=== PATIENT | female | born 1970 | race Caucasian/White ===

== ENCOUNTER 2017-01-08 12:17 | Inpatient (IN) | payer MEDICARE, MEDICAID ==
[~2017-01-08 12:17] MED LIST: ADULT ASPIRIN81 MG PO; ADULT LOW DOSE81 MG; ALBUTEROL2.5 MG/0.1 NEB; ALTACE10 MG; ASPIR-LOW81 MG PO; ASPIRIN BUFFER325 M1 PO; ASPIRIN EC325 M1 PO; ASPIRIN EC81 MG PO; ASPIRIN PO; ASPIRIN325 MG PO; AVELOX400 M1 PO; BAYER CHILDREN'81 MG PO; BENADRYL25 M3 PO; BENADRYL25 MG PO; BENADRYL50 MG PO; BISACODYL10 MG/SU PR; BUMETANIDE1 M1 PO; BUMETANIDE2 M1 PO; BUMEX1 MG; CARAFATE1 G/10 ML PO; CLINDAMYCIN HC300 M2 PO; COL-RITE100 M1 PO; COLACE100 M1 PO; COUMADIN2 MG PO; COUMADIN2.5 MG; COUMADIN3 MG; COUMADIN3 MG PO; COZAAR50 MG PO; CYCLOBENZAPRINE10 M1 PO; DEMEROL50 MG PO; DEXTROSE 50%-WA50 M3 IV; DOCUSATE CALCI240 M1 PO; EFFER-K 10 MEQ10 MEQ PO; EPOGEN10000 UNIT SC; EPOGEN20000 U/ML SC; EVZIO0.4 MG/0.4 IV; FLEXERIL10 MG; FLEXERIL10 MG PO; FLONASE16 G3 NS; FLONASE16 GM NS; GABAPENTIN300 M1 PO; GLUCAGON EME1 MG/KIT IM; HUMALOG100 U/ML; HUMALOG100 UNITS/ SC; HUMULIN N100 U/ML SQ; HYDROMORPHO1 MG/1 M2 IV; HYDROMORPHONE1 MG/M1 IV; INSULIN GLARGINE; IRON1 TA1 PO; IRON325 M1 PO; IRON325 M3 PO; K-DUR20 MEQ; KEFLEX500 MG PO; KLOR-CON 1010 ME1 PO; LANTUS100 U/ML; LANTUS100 U/ML SC; LANTUS100 UNITS/ SC; LASIX; LASIX20 MG; LASIX40 M1 PO; LEVAQUIN; LEVEMIR FL100 UNIT/2 SC; LEXAPRO10 MG; LEXAPRO20 M1 PO; LEXAPRO20 M2 PO; LEXAPRO20 MG PO; LIDOCAINE VISCO15 ML PO; LIPITOR; LIPITOR10 MG; LIPITOR40 M1 PO; LOPRE25 PO; LOVENOX30 MG/0.3 SC; METOLAZONE2.5 M1 PO; METOPROLOL TART25 M1 PO; MIRALAX17 G1 PO; MIRALAX17 G2 PO; MIRALAX255 GM; NORVASC10 M1 PO; NORVASC2.5 MG PO; NORVASC5 M2 PO; NORVASC5 MG PO; NOVOFINE; NOVOLOG FL100 UNIT/2 SC; NOVOLOG FL100 UNIT/2 SQ; NOVOLOG100 U/M; NOVOLOG100 U/M SQ; NOVOLOG100 U/ML; NYSTOP15 GM TP; OMEPRAZOLE MAGN20 M1 PO; OMEPRAZOLE20 M4 PO; OXECTA7.5 MG PO; OXYCODONE/APAP; OXYCONTIN40 M2 PO; OXYCONTIN40 MG PO; OYST-CAL-500500 MG PO; PACERONE200 MG PO; PANTOPRAZOLE SO40 M3 PO; PERCOCET 10/31 UDTAB PO; PERCOCET 5-3251 EACH PO; PERCOCET 7.5/1 UDTAB; PERCOCET 7.5/321 TA2 PO; PLAVIX75 MG PO; POTASSIUM CHLO10 MEQ; PREVACID30 MG; PRILOSEC40 MG PO; PROCRIT10000 U/ML IJ; PROCRIT10000 UNIT IJ; REQUIP1 M1 PO; REQUIP1 MG; REQUIP1 MG PO; REQUIP2 MG PO; ROPINIROLE HCL1 M1 PO; ROPINIROLE HCL1 MG PO; ROXICODONE5 M2 PO; SANTYL30 GM TP; SILVADENE20 GM TP; SIMVASTATIN40 M1 PO; SLOW-MAG71.5 MG PO; TAMIFLU75 MG/CAP PO; TOPROL XL100 MG; TOPROL XL100 MG PO; TOPROL XL200 MG; TYLENOL TA325 MG/TAB PO; TYLENOL325 M1 PO; VICODIN 5/500 T1 TAB PO; VISTARIL25 M1 PO; VITAMIN D 22000 UNIT PO; VITAMIN D-32000 UNI3 PO; VITAMIN D400 UNIT PO; VYTORIN; VYTORIN 10/40 T1 TAB PO; ZETIA10 MG; ZOFRAN4 MG/5 M1 IV; [UNRECOGNIZED DRUG - CODE] IJ; [UNRECOGNIZED DRUG - OTHER]; [UNRECOGNIZED DRUG - OTHER] PO; vytorin
[2017-01-08] MEDS ORDERED: AMLODIPINE BESYL5 MG PO (13:11)
[2017-01-08] MEDS ORDERED: ASPIRIN325 M3 PO (13:12)
[2017-01-08] MEDS ORDERED: VITAMIN D31000 UNI3 PO (13:12)
[2017-01-08] MEDS ORDERED: LEXAPRO10 M2 PO (13:13)
[2017-01-08] MEDS ORDERED: FLONASE ALLERG9.9 ML (13:14)
[2017-01-08] MEDS ORDERED: METOLAZONE2.5 M1 PO (13:15)
[2017-01-08] MEDS ORDERED: LEVOTHYROXINE125 MC1 PO (13:15)
[2017-01-08] MEDS ORDERED: SLOW-MAG71.5 MG PO (13:18)
[2017-01-08] MEDS ORDERED: REQUIP3 M1 PO (13:18)
[2017-01-08] MEDS ORDERED: PROAIR RESPICL90 MCG INH (13:20)
[2017-01-08 16:24] LABS: BASO % 0.1 % (0-2); EOS % 11.1 % (0-7); EOSINOPHIL ABSOLUTE COUNT 1.2 tho/cmm (0.0-0.7); HCT-HEMATOCRIT 30.7 % (34.0-49.0); HGB-HEMOGLOBIN 9.4 gm/dl (12.0-15.5); IMMATURE GRANULOCYTES ABSOLUTE 0.02 tho/cmm (0-0.03); IMMATURE GRANULOCYTES PERCENT 0.2 % (0-0.3); LYMPH % 11.8 % (20-45); LYMPH ABSOLUTE COUNT 1.3 tho/cmm (0.8-4.5); MCH (MEAN CORPUSCULAR HGB) 29.5 pg (28.0-32.0); MCHC MEAN CORPUSCULAR HGB CONC 30.6 % (32.0-36.0); MCV (MEAN CELL VOLUME) 96.2 fl (82.0-96.0); MONO % 3.5 % (0-12); MONOCYTE ABSOLUTE COUNT 0.4 tho/cmm (0.0-1.2); NEUTROPHIL ABSOLUTE COUNT 8.1 tho/cmm (1.6-8.0); NEUTROPHIL-AUTOMATED 8.1 tho/cmm (1.6-8.0); NEUTROPHILS % 73.3 % (40-80); PLATELET COUNT 228 tho/cmm (150-450); RED BLOOD COUNT 3.19 mil/cmm (4.00-5.20); RED CELL DISTRIBUTION WIDTH 16.7 % (12.4-16.4)
[2017-01-08 16:26] LABS: ABG CO2 ARTERIAL 33 mmol/L (21-27); ARTERIAL BLD GAS O2 SATURATION 90 % (95-98); ARTERIAL BLOOD GAS PCO2 50 mmHg (32-45); ARTERIAL PO2 59 mmHg (70-100); BICARBONATE 31 mmol/L (21-28); BLOOD GAS BASE EXCESS 6 mM/L (-/+3); PH 7.41 Units (7.35-7.45)
[2017-01-08 16:34] LABS: ALB/GLOB RATIO 0.4 (0.8-2.0); ALBUMIN 2.1 g/dl (3.5-5.0); ALKALINE PHOSPHATASE 108 U/L (33-138); ALT/SGPT 10 U/L (12-78); ANION GAP 11 mmol/L (0-20); AST/SGOT 10 U/L (10-40); BILIRUBIN,TOTAL 0.3 mg/dl (0-1.5); BLOOD UREA NITROGEN 82 mg/dl (6-24); CARBON DIOXIDE-VENOUS 32 mmol/L (22-32); CHLORIDE 99 mmol/l (96-110); GLUCOSE 212 mg/dL (70-110); POTASSIUM 4.2 mmol/L (3.7-5.1); SODIUM 138 mmol/L (135-145); eGFR VALUE FOR BLACK 21 mL/Min
[2017-01-08 22:07] LABS: PROTHROMBIN TIME 11.8 SECONDS (9.0-13.6)
[2017-01-08 22:19] LABS: PROCALCITONIN 0.07 ng/ml (0.05-0.09)
[2017-01-09 07:41] LABS: ANION GAP 11 mmol/L (0-20); BLOOD UREA NITROGEN 77 mg/dl (6-24); CALCIUM 8.1 mg/dl (8.5-10.5); CARBON DIOXIDE-VENOUS 32 mmol/L (22-32); CHLORIDE 100 mmol/l (96-110); CREATININE 2.87 mg/dl (0.50-1.10); GLUCOSE 290 mg/dL (70-110); PHOSPHOROUS 4.6 mg/dl (2.5-4.9); POTASSIUM 4.2 mmol/L (3.7-5.1); SODIUM 139 mmol/L (135-145); eGFR VALUE FOR BLACK 22 mL/Min
[2017-01-10 06:20] LABS: EOS % 0.1 % (0-7); HCT-HEMATOCRIT 35.8 % (34.0-49.0); IMMATURE GRANULOCYTES ABSOLUTE 0.02 tho/cmm (0-0.03); IMMATURE GRANULOCYTES PERCENT 0.3 % (0-0.3); LYMPH % 6.1 % (20-45); LYMPH ABSOLUTE COUNT 0.5 tho/cmm (0.8-4.5); MCH (MEAN CORPUSCULAR HGB) 29.6 pg (28.0-32.0); MCHC MEAN CORPUSCULAR HGB CONC 30.7 % (32.0-36.0); MCV (MEAN CELL VOLUME) 96.5 fl (82.0-96.0); MEAN PLATELET VOLUME 10.6 cmc (9.4-12.4); MONO % 0.3 % (0-12); NEUTROPHIL ABSOLUTE COUNT 7.4 tho/cmm (1.6-8.0); NEUTROPHIL-AUTOMATED 7.4 tho/cmm (1.6-8.0); NEUTROPHILS % 93.2 % (40-80); PLATELET COUNT 247 tho/cmm (150-450); RED BLOOD COUNT 3.71 mil/cmm (4.00-5.20); RED CELL DISTRIBUTION WIDTH 16.4 % (12.4-16.4); WHITE BLOOD COUNT 7.9 tho/cmm (4.0-10.0)
[2017-01-10 06:22] LABS: ABG CO2 ARTERIAL 25 mmol/L (21-27); ARTERIAL BLD GAS O2 SATURATION 95 % (95-98); ARTERIAL BLOOD GAS PCO2 41 mmHg (32-45); ARTERIAL PO2 73 mmHg (70-100); BICARBONATE 29 mmol/L (21-28); BLOOD GAS BASE EXCESS 5 mM/L (-/+3); PH 7.47 Units (7.35-7.45)
[2017-01-10 07:08] LABS: ALBUMIN 2.3 g/dl (3.5-5.0); ANION GAP 17 mmol/L (0-20); BLOOD UREA NITROGEN 74 mg/dl (6-24); CALCIUM 8.7 mg/dl (8.5-10.5); CARBON DIOXIDE-VENOUS 30 mmol/L (22-32); CHLORIDE 96 mmol/l (96-110); CREATININE 2.69 mg/dl (0.50-1.10); FERRITIN 386 ng/ml (8-250); PHOSPHOROUS 3.3 mg/dl (2.5-4.9); POTASSIUM 4.8 mmol/L (3.7-5.1); SODIUM 138 mmol/L (135-145); eGFR VALUE FOR BLACK 24 mL/Min
[2017-01-10 07:15] LABS: GLUCOSE 436 mg/dL (70-110)
[2017-01-10 07:29] LABS: IRON 43 ug/dl (37-170); IRON BINDING CAPACITY 205 ug/dl (250-450)
--- NOTE | 2017-01-10 16:47 | NUR ---
VIRTUAL CARE NOTE: PT RESTING ON BED, STILL ON 5-6L OXYGEN. PT STATES FEELING BETTER, NO COUGHING MUCH BUT SOB WITH ACTIVITIES. STEROIDS IV STARTED BLOOD SUGAR HIGH, SSI INCREASED TO AGGREESIVE. PT IS ACS[place] OF [place] PLAN, WILL PLAN DC HOME WITH O2 TOMORROW. PT DENIES ANY EXTRA HELP AT DISCHARGE. PT HAD [facility] IN THE PAST BUT DOES NOT NEED THE SERCIVE AT THIS TIME.
[2017-01-11 06:02] LABS: EOS % 0.2 % (0-7); HGB-HEMOGLOBIN 10.9 gm/dl (12.0-15.5); IMMATURE GRANULOCYTES ABSOLUTE 0.03 tho/cmm (0-0.03); IMMATURE GRANULOCYTES PERCENT 0.3 % (0-0.3); LYMPH % 5.2 % (20-45); LYMPH ABSOLUTE COUNT 0.6 tho/cmm (0.8-4.5); MCH (MEAN CORPUSCULAR HGB) 29.9 pg (28.0-32.0); MCHC MEAN CORPUSCULAR HGB CONC 31.1 % (32.0-36.0); MCV (MEAN CELL VOLUME) 95.9 fl (82.0-96.0); MEAN PLATELET VOLUME 10.9 cmc (9.4-12.4); MONO % 3.9 % (0-12); MONOCYTE ABSOLUTE COUNT 0.5 tho/cmm (0.0-1.2); NEUTROPHIL ABSOLUTE COUNT 10.4 tho/cmm (1.6-8.0); NEUTROPHIL-AUTOMATED 10.4 tho/cmm (1.6-8.0); NEUTROPHILS % 90.4 % (40-80); RED BLOOD COUNT 3.65 mil/cmm (4.00-5.20); RED CELL DISTRIBUTION WIDTH 16.4 % (12.4-16.4); WHITE BLOOD COUNT 11.5 tho/cmm (4.0-10.0)
[2017-01-11 06:22] LABS: BLOOD UREA NITROGEN 78 mg/dl (6-24); CALCIUM 8.5 mg/dl (8.5-10.5); CARBON DIOXIDE-VENOUS 29 mmol/L (22-32); CHLORIDE 96 mmol/l (96-110); CREATININE 2.69 mg/dl (0.50-1.10); SODIUM 136 mmol/L (135-145); eGFR VALUE FOR BLACK 24 mL/Min
[2017-01-11 06:50] LABS: ANION GAP 17 mmol/L (0-20); GLUCOSE 502 mg/dL (70-110); POTASSIUM 5.5 mmol/L (3.7-5.1)
[2017-01-11 08:06] LABS: PLATELET COUNT 253 tho/cmm (150-450)
[2017-01-12 06:50] LABS: EOS % 0.1 % (0-7); HCT-HEMATOCRIT 34.6 % (34.0-49.0); HGB-HEMOGLOBIN 10.7 gm/dl (12.0-15.5); IMMATURE GRANULOCYTES ABSOLUTE 0.01 tho/cmm (0-0.03); IMMATURE GRANULOCYTES PERCENT 0.1 % (0-0.3); LYMPH % 10.5 % (20-45); LYMPH ABSOLUTE COUNT 0.8 tho/cmm (0.8-4.5); MCH (MEAN CORPUSCULAR HGB) 29.6 pg (28.0-32.0); MCHC MEAN CORPUSCULAR HGB CONC 30.9 % (32.0-36.0); MCV (MEAN CELL VOLUME) 95.6 fl (82.0-96.0); MEAN PLATELET VOLUME 10.6 cmc (9.4-12.4); MONO % 6.1 % (0-12); MONOCYTE ABSOLUTE COUNT 0.5 tho/cmm (0.0-1.2); NEUTROPHIL ABSOLUTE COUNT 6.2 tho/cmm (1.6-8.0); NEUTROPHIL-AUTOMATED 6.2 tho/cmm (1.6-8.0); NEUTROPHILS % 83.2 % (40-80); PLATELET COUNT 241 tho/cmm (150-450); RED BLOOD COUNT 3.62 mil/cmm (4.00-5.20); RED CELL DISTRIBUTION WIDTH 15.8 % (12.4-16.4); WHITE BLOOD COUNT 7.5 tho/cmm (4.0-10.0)
[2017-01-12 07:04] LABS: BLOOD UREA NITROGEN 89 mg/dl (6-24); CALCIUM 9.2 mg/dl (8.5-10.5); CARBON DIOXIDE-VENOUS 32 mmol/L (22-32); CHLORIDE 91 mmol/l (96-110); CREATININE 2.95 mg/dl (0.50-1.10); SODIUM 133 mmol/L (135-145); eGFR VALUE FOR BLACK 21 mL/Min
[2017-01-12 07:08] LABS: ANION GAP 15 mmol/L (0-20); POTASSIUM 4.6 mmol/L (3.7-5.1)
[2017-01-12 07:09] LABS: GLUCOSE 511 mg/dL (70-110)
--- NOTE | 2017-01-12 17:09 | NUR ---
CALLED REPORT TO JB, PATIENT TRANSPORTED TO UNIT STABLE WITH HOME ITEMS INSULIN DRIP TAKEN DOWN TO RN
[2017-01-13 05:51] LABS: BLOOD UREA NITROGEN 100 mg/dl (6-24); CALCIUM 9.2 mg/dl (8.5-10.5); CARBON DIOXIDE-VENOUS 33 mmol/L (22-32); CHLORIDE 91 mmol/l (96-110); CREATININE 2.83 mg/dl (0.50-1.10); SODIUM 134 mmol/L (135-145); eGFR VALUE FOR BLACK 23 mL/Min
[2017-01-13 05:56] LABS: ANION GAP 15 mmol/L (0-20); GLUCOSE 226 mg/dL (70-110); POTASSIUM 4.9 mmol/L (3.7-5.1)
[2017-01-13] MEDS ORDERED: LEVAQUIN750 M1 PO (18:02)
[2017-01-13] MEDS ORDERED: PROAIR HFA8.5 GM INH (18:03)
== END 2017-01-13 18:23 | disposition home health service (06) | DRG 193 ==
LOC: 5WD 12:17 → PCUA 01-12 16:54
PROVIDERS: Family Medicine; Internal Medicine Nephrology; ADMIT Family Medicine
PROC: 05H633Z Insertion of Infusion Device into Left Subclavian Vein, Percutaneous Approach (ICD-10-PCS; principal; 2017-01-08)
PROC: 5A09357 Assistance with Respiratory Ventilation, Less than 24 Consecutive Hours, Continuous Positive Airway Pressure (ICD-10-PCS; 2017-01-08)
DX: J18.9 Pneumonia, unspecified organism (principal); J96.01 Acute respiratory failure with hypoxia; E10.22 Type 1 diabetes mellitus with diabetic chronic kidney disease; N18.4 Chronic kidney disease, stage 4 (severe); D72.1 Eosinophilia; E10.65 Type 1 diabetes mellitus with hyperglycemia; G47.33 Obstructive sleep apnea (adult) (pediatric); I25.10 Atherosclerotic heart disease of native coronary artery without angina pectoris; I73.9 Peripheral vascular disease, unspecified; I12.9 Hypertensive chronic kidney disease with stage 1 through stage 4 chronic kidney disease, or unspecified chronic kidney disease; Z86.718 Personal history of other venous thrombosis and embolism; Z89.512 Acquired absence of left leg below knee; Z89.511 Acquired absence of right leg below knee; Z95.5 Presence of coronary angioplasty implant and graft; E03.8 Other specified hypothyroidism; E78.5 Hyperlipidemia, unspecified; D63.1 Anemia in chronic kidney disease; K21.9 Gastro-esophageal reflux disease without esophagitis; Z79.82 Long term (current) use of aspirin; Z88.8 Allergy status to other drugs, medicaments and biological substances; G89.29 Other chronic pain; K59.00 Constipation, unspecified; R10.2 Pelvic and perineal pain
CPT/HCPCS: A9540; A9558; C1751; J1644; J1815; J1940; J1956; J2930; J7050; J7512

== ENCOUNTER 2017-01-25 17:32 | Inpatient (IN) | payer MEDICARE, MEDICAID ==
[2017-01-25 15:20] LABS: CARBON DIOXIDE-VENOUS 36 mmol/L (21-33); CREATININE 3.82 mg/dl (0.67-1.17); GLUCOSE 372 mg/dl (65-120); POTASSIUM 4.4 mmol/L (3.5-5.3); SODIUM 133 mmol/L (135-146); eGFR VALUE FOR BLACK 16 mL/Min
[2017-01-25 15:27] LABS: KETONE-BETA (WHOLE BLOOD) 0.8 mmol/L (0.0-0.6)
[2017-01-25 15:40] LABS: ABG CO2 ARTERIAL 36 mmol/L (21-27); ARTERIAL BLD GAS O2 SATURATION 98 % (95-98); ARTERIAL BLOOD GAS PCO2 66 mmHg (32-45); ARTERIAL PO2 117 mmHg (70-100); BICARBONATE 34 mmol/L (21-28); BLOOD GAS BASE EXCESS 7 mM/L (-/+3); PH 7.33 Units (7.35-7.45)
[2017-01-25 15:43] LABS: ALB/GLOB RATIO 0.4 (0.8-2.0); ALBUMIN 2.4 g/dl (3.5-5.0); ALKALINE PHOSPHATASE 103 U/L (33-138); ALT/SGPT 18 U/L (12-78); ANION GAP 9 mmol/L (0-20); AST/SGOT 24 U/L (10-40); BILIRUBIN,TOTAL 0.4 mg/dl (0-1.5); BLOOD UREA NITROGEN 146 mg/dl (6-24); CALCIUM 9.1 mg/dl (8.5-10.5); CHLORIDE 92 mmol/l (96-110)
[2017-01-25 15:49] LABS: BASO % 0.2 % (0-2); EOS % 9.8 % (0-7); EOSINOPHIL ABSOLUTE COUNT 1.2 tho/cmm (0.0-0.7); HCT-HEMATOCRIT 34.5 % (34.0-49.0); HGB-HEMOGLOBIN 11.1 gm/dl (12.0-15.5); IMMATURE GRANULOCYTES PERCENT 0.8 % (0-0.3); LYMPH % 9.7 % (20-45); LYMPH ABSOLUTE COUNT 1.2 tho/cmm (0.8-4.5); MCH (MEAN CORPUSCULAR HGB) 30.2 pg (28.0-32.0); MCHC MEAN CORPUSCULAR HGB CONC 32.2 % (32.0-36.0); MCV (MEAN CELL VOLUME) 93.8 fl (82.0-96.0); MEAN PLATELET VOLUME 10.7 cmc (9.4-12.4); MONO % 2.5 % (0-12); MONOCYTE ABSOLUTE COUNT 0.3 tho/cmm (0.0-1.2); NEUTROPHIL ABSOLUTE COUNT 9.2 tho/cmm (1.6-8.0); NEUTROPHIL-AUTOMATED 9.2 tho/cmm (1.6-8.0); PLATELET COUNT 238 tho/cmm (150-450); RED BLOOD COUNT 3.68 mil/cmm (4.00-5.20); RED CELL DISTRIBUTION WIDTH 15.8 % (12.4-16.4); WHITE BLOOD COUNT 11.9 tho/cmm (4.0-10.0)
[2017-01-25 16:51] LABS: URINE APPEARANCE HAZY; URINE BILIRUBIN NEGATIVE (NEG); URINE BLOOD NEGATIVE (NEG); URINE COLOR YELLOW; URINE GLUCOSE (UA) SMALL (NEG); URINE KETONE NEGATIVE (NEG); URINE LEUKOCYTE ESTERASE NEGATIVE (NEG); URINE NITRITE NEGATIVE (NEG); URINE PROTEIN MODERATE (NEG)
[2017-01-25 17:01] LABS: URINE EPITHELIAL CELLS 0-1 /[HPF] (0-10)
[2017-01-25 17:02] LABS: URINE AMORPHOUS 1+; URINE WBC 0-1 /[HPF] (0-5)
[~2017-01-25 17:32] MED LIST changes: +AMLODIPINE BESYL5 MG PO; +ASPIRIN325 M3 PO; +FLONASE ALLERG9.9 ML; +LEVAQUIN750 M1 PO; +LEVOTHYROXINE125 MC1 PO; +LEXAPRO10 M2 PO; +PROAIR HFA8.5 GM INH; +PROAIR RESPICL90 MCG INH; +REQUIP3 M1 PO; +VITAMIN D31000 UNI3 PO
[2017-01-25 18:04] LABS: PROCALCITONIN 0.07 ng/ml (0.05-0.09)
[2017-01-25 18:13] LABS: ABG CO2 ARTERIAL 37 mmol/L (21-27); ARTERIAL BLD GAS O2 SATURATION 98 % (95-98); ARTERIAL BLOOD GAS PCO2 64 mmHg (32-45); ARTERIAL PO2 248 mmHg (70-100); BICARBONATE 35 mmol/L (21-28); BLOOD GAS BASE EXCESS 9 mM/L (-/+3); PH 7.36 Units (7.35-7.45)
[2017-01-26 05:02] LABS: EOS % 1.1 % (0-7); EOSINOPHIL ABSOLUTE COUNT 0.1 tho/cmm (0.0-0.7); HCT-HEMATOCRIT 34.8 % (34.0-49.0); IMMATURE GRANULOCYTES ABSOLUTE 0.02 tho/cmm (0-0.03); IMMATURE GRANULOCYTES PERCENT 0.4 % (0-0.3); LYMPH % 8.5 % (20-45); LYMPH ABSOLUTE COUNT 0.5 tho/cmm (0.8-4.5); MCH (MEAN CORPUSCULAR HGB) 29.6 pg (28.0-32.0); MCHC MEAN CORPUSCULAR HGB CONC 31.6 % (32.0-36.0); MCV (MEAN CELL VOLUME) 93.8 fl (82.0-96.0); MONO % 0.4 % (0-12); NEUTROPHIL ABSOLUTE COUNT 4.9 tho/cmm (1.6-8.0); NEUTROPHIL-AUTOMATED 4.9 tho/cmm (1.6-8.0); NEUTROPHILS % 89.6 % (40-80); PLATELET COUNT 225 tho/cmm (150-450); RED BLOOD COUNT 3.71 mil/cmm (4.00-5.20); RED CELL DISTRIBUTION WIDTH 15.4 % (12.4-16.4)
[2017-01-26 05:10] LABS: ANION GAP 13 mmol/L (0-20); BLOOD UREA NITROGEN 140 mg/dl (6-24); CARBON DIOXIDE-VENOUS 34 mmol/L (22-32); CHLORIDE 93 mmol/l (96-110); CREATININE 3.43 mg/dl (0.50-1.10); POTASSIUM 3.6 mmol/L (3.7-5.1); SODIUM 136 mmol/L (135-145); eGFR VALUE FOR BLACK 18 mL/Min
[2017-01-26 05:16] LABS: WHITE BLOOD COUNT 5.5 tho/cmm (4.0-10.0)
[2017-01-26 05:24] LABS: GLUCOSE 493 mg/dL (70-110)
[2017-01-26 05:49] LABS: ABG CO2 ARTERIAL 35 mmol/L (21-27); ARTERIAL BLD GAS O2 SATURATION 92 % (95-98); ARTERIAL BLOOD GAS PCO2 58 mmHg (32-45); BICARBONATE 34 mmol/L (21-28); BLOOD GAS BASE EXCESS 7 mM/L (-/+3); PH 7.38 Units (7.35-7.45)
[2017-01-26 05:50] LABS: ARTERIAL PO2 65 mmHg (70-100)
[2017-01-26 12:31] LABS: ANION GAP 15 mmol/L (0-20); BLOOD UREA NITROGEN 126 mg/dl (6-24); CALCIUM 8.9 mg/dl (8.5-10.5); CARBON DIOXIDE-VENOUS 33 mmol/L (22-32); CHLORIDE 89 mmol/l (96-110); CREATININE 3.11 mg/dl (0.50-1.10); POTASSIUM 3.6 mmol/L (3.7-5.1); eGFR VALUE FOR BLACK 20 mL/Min
[2017-01-26 13:04] LABS: ANION GAP 14 mmol/L (0-20); BLOOD UREA NITROGEN 126 mg/dl (6-24); CALCIUM 8.8 mg/dl (8.5-10.5); CARBON DIOXIDE-VENOUS 33 mmol/L (22-32); CHLORIDE 88 mmol/l (96-110); CREATININE 3.13 mg/dl (0.50-1.10); POTASSIUM 3.6 mmol/L (3.7-5.1); SODIUM 131 mmol/L (135-145); eGFR VALUE FOR BLACK 20 mL/Min
[2017-01-26 13:06] LABS: GLUCOSE 669 mg/dL (70-110)
[2017-01-26 13:06] LABS: GLUCOSE 628 mg/dL (70-110)
[2017-01-26 13:07] LABS: SODIUM 133 mmol/L (135-145)
[2017-01-26 14:58] LABS: ANION GAP 15 mmol/L (0-20); BLOOD UREA NITROGEN 129 mg/dl (6-24); CALCIUM 8.6 mg/dl (8.5-10.5); CARBON DIOXIDE-VENOUS 33 mmol/L (22-32); CHLORIDE 88 mmol/l (96-110); POTASSIUM 3.3 mmol/L (3.7-5.1); SODIUM 133 mmol/L (135-145); eGFR VALUE FOR BLACK 20 mL/Min
[2017-01-26 15:02] LABS: GLUCOSE 659 mg/dL (70-110)
[2017-01-26 16:40] LABS: ANION GAP 13 mmol/L (0-20); BLOOD UREA NITROGEN 123 mg/dl (6-24); CALCIUM 8.6 mg/dl (8.5-10.5); CARBON DIOXIDE-VENOUS 34 mmol/L (22-32); CHLORIDE 89 mmol/l (96-110); CREATININE 3.09 mg/dl (0.50-1.10); POTASSIUM 3.2 mmol/L (3.7-5.1); SODIUM 133 mmol/L (135-145); eGFR VALUE FOR BLACK 20 mL/Min
[2017-01-26 16:45] LABS: GLUCOSE 587 mg/dL (70-110)
[2017-01-26 19:15] LABS: ANION GAP 13 mmol/L (0-20); BLOOD UREA NITROGEN 121 mg/dl (6-24); CALCIUM 8.6 mg/dl (8.5-10.5); CARBON DIOXIDE-VENOUS 35 mmol/L (22-32); CHLORIDE 89 mmol/l (96-110); CREATININE 3.16 mg/dl (0.50-1.10); POTASSIUM 3.1 mmol/L (3.7-5.1); SODIUM 134 mmol/L (135-145); eGFR VALUE FOR BLACK 20 mL/Min
[2017-01-26 19:24] LABS: GLUCOSE 493 mg/dL (70-110)
[2017-01-26 19:58] LABS: PROCALCITONIN <0.05 ng/ml (0.05-0.09)
[2017-01-27 03:59] LABS: ANION GAP 10 mmol/L (0-20); BLOOD UREA NITROGEN 121 mg/dl (6-24); CALCIUM 8.5 mg/dl (8.5-10.5); CARBON DIOXIDE-VENOUS 37 mmol/L (22-32); CHLORIDE 93 mmol/l (96-110); CREATININE 2.82 mg/dl (0.50-1.10); GLUCOSE 304 mg/dL (70-110); POTASSIUM 3.3 mmol/L (3.7-5.1); SODIUM 137 mmol/L (135-145); eGFR VALUE FOR BLACK 23 mL/Min
[2017-01-27 04:04] LABS: OSMOLALITY 337 mOsm/kg (275-295)
[2017-01-27 04:16] LABS: BASO % 0.1 % (0-2); EOSINOPHIL ABSOLUTE COUNT 0.2 tho/cmm (0.0-0.7); HCT-HEMATOCRIT 32.5 % (34.0-49.0); HGB-HEMOGLOBIN 10.2 gm/dl (12.0-15.5); IMMATURE GRANULOCYTES ABSOLUTE 0.02 tho/cmm (0-0.03); IMMATURE GRANULOCYTES PERCENT 0.2 % (0-0.3); LYMPH % 10.6 % (20-45); LYMPH ABSOLUTE COUNT 0.9 tho/cmm (0.8-4.5); MCH (MEAN CORPUSCULAR HGB) 29.1 pg (28.0-32.0); MCHC MEAN CORPUSCULAR HGB CONC 31.4 % (32.0-36.0); MCV (MEAN CELL VOLUME) 92.9 fl (82.0-96.0); MEAN PLATELET VOLUME 10.4 cmc (9.4-12.4); MONO % 4.6 % (0-12); MONOCYTE ABSOLUTE COUNT 0.4 tho/cmm (0.0-1.2); NEUTROPHIL ABSOLUTE COUNT 7.2 tho/cmm (1.6-8.0); NEUTROPHIL-AUTOMATED 7.2 tho/cmm (1.6-8.0); NEUTROPHILS % 82.5 % (40-80); PLATELET COUNT 238 tho/cmm (150-450); RED CELL DISTRIBUTION WIDTH 15.4 % (12.4-16.4)
[2017-01-27 04:19] LABS: WHITE BLOOD COUNT 8.7 tho/cmm (4.0-10.0)
[2017-01-27 04:53] LABS: ABG CO2 ARTERIAL 32 mmol/L (21-27); ARTERIAL BLD GAS O2 SATURATION 98 % (95-98); ARTERIAL BLOOD GAS PCO2 50 mmHg (32-45); BICARBONATE 38 mmol/L (21-28); BLOOD GAS BASE EXCESS 13 mM/L (-/+3)
[2017-01-27 04:55] LABS: ARTERIAL PO2 90 mmHg (70-100)
[2017-01-27 17:25] LABS: MAGNESIUM 1.7 mg/dl (1.8-2.6); PHOSPHOROUS 3.1 mg/dl (2.5-4.9)
[2017-01-28 03:22] LABS: ANION GAP 8 mmol/L (0-20); BLOOD UREA NITROGEN 100 mg/dl (6-24); CALCIUM 8.5 mg/dl (8.5-10.5); CARBON DIOXIDE-VENOUS 39 mmol/L (22-32); CHLORIDE 98 mmol/l (96-110); CREATININE 2.38 mg/dl (0.50-1.10); GLUCOSE 227 mg/dL (70-110); POTASSIUM 3.4 mmol/L (3.7-5.1); SODIUM 142 mmol/L (135-145); eGFR VALUE FOR BLACK 28 mL/Min
[2017-01-28 03:42] LABS: BASO % 0.2 % (0-2); EOSINOPHIL ABSOLUTE COUNT 0.9 tho/cmm (0.0-0.7); HCT-HEMATOCRIT 37.5 % (34.0-49.0); HGB-HEMOGLOBIN 11.3 gm/dl (12.0-15.5); IMMATURE GRANULOCYTES ABSOLUTE 0.01 tho/cmm (0-0.03); IMMATURE GRANULOCYTES PERCENT 0.2 % (0-0.3); LYMPH % 18.4 % (20-45); LYMPH ABSOLUTE COUNT 1.1 tho/cmm (0.8-4.5); MCH (MEAN CORPUSCULAR HGB) 28.7 pg (28.0-32.0); MCHC MEAN CORPUSCULAR HGB CONC 30.1 % (32.0-36.0); MCV (MEAN CELL VOLUME) 95.2 fl (82.0-96.0); MEAN PLATELET VOLUME 10.1 cmc (9.4-12.4); MONO % 6.3 % (0-12); MONOCYTE ABSOLUTE COUNT 0.4 tho/cmm (0.0-1.2); NEUTROPHIL ABSOLUTE COUNT 3.7 tho/cmm (1.6-8.0); NEUTROPHIL-AUTOMATED 3.7 tho/cmm (1.6-8.0); NEUTROPHILS % 59.6 % (40-80); PLATELET COUNT 192 tho/cmm (150-450); RED BLOOD COUNT 3.94 mil/cmm (4.00-5.20); RED CELL DISTRIBUTION WIDTH 15.3 % (12.4-16.4); WHITE BLOOD COUNT 6.2 tho/cmm (4.0-10.0)
[2017-01-28 03:47] LABS: EOS % 15.3 % (0-7)
[2017-01-28 05:05] LABS: ARTERIAL BLD GAS O2 SATURATION 93 % (95-98); ARTERIAL BLOOD GAS PCO2 59 mmHg (32-45); BICARBONATE 41 mmol/L (21-28); BLOOD GAS BASE EXCESS 15 mM/L (-/+3); PH 7.46 Units (7.35-7.45)
[2017-01-28 05:11] LABS: ARTERIAL PO2 63 mmHg (70-100)
[2017-01-28 05:12] LABS: ABG CO2 ARTERIAL 43 mmol/L (21-27)
[2017-01-29 05:31] LABS: ARTERIAL BLD GAS O2 SATURATION 96 % (95-98); ARTERIAL BLOOD GAS PCO2 53 mmHg (32-45); ARTERIAL PO2 71 mmHg (70-100); BICARBONATE 41 mmol/L (21-28); BLOOD GAS BASE EXCESS 16 mM/L (-/+3); PH 7.51 Units (7.35-7.45)
[2017-01-29 05:46] LABS: ABG CO2 ARTERIAL 43 mmol/L (21-27)
[2017-01-29 06:04] LABS: BASO % 0.2 % (0-2); EOSINOPHIL ABSOLUTE COUNT 1.2 tho/cmm (0.0-0.7); HCT-HEMATOCRIT 36.1 % (34.0-49.0); HGB-HEMOGLOBIN 11.1 gm/dl (12.0-15.5); IMMATURE GRANULOCYTES ABSOLUTE 0.01 tho/cmm (0-0.03); IMMATURE GRANULOCYTES PERCENT 0.2 % (0-0.3); LYMPH % 18.9 % (20-45); LYMPH ABSOLUTE COUNT 1.3 tho/cmm (0.8-4.5); MCH (MEAN CORPUSCULAR HGB) 29.3 pg (28.0-32.0); MCHC MEAN CORPUSCULAR HGB CONC 30.7 % (32.0-36.0); MCV (MEAN CELL VOLUME) 95.3 fl (82.0-96.0); MEAN PLATELET VOLUME 10.1 cmc (9.4-12.4); MONO % 5.9 % (0-12); MONOCYTE ABSOLUTE COUNT 0.4 tho/cmm (0.0-1.2); NEUTROPHIL ABSOLUTE COUNT 3.7 tho/cmm (1.6-8.0); NEUTROPHIL-AUTOMATED 3.7 tho/cmm (1.6-8.0); NEUTROPHILS % 56.2 % (40-80); PLATELET COUNT 179 tho/cmm (150-450); RED BLOOD COUNT 3.79 mil/cmm (4.00-5.20); RED CELL DISTRIBUTION WIDTH 15.2 % (12.4-16.4); WHITE BLOOD COUNT 6.6 tho/cmm (4.0-10.0)
[2017-01-29 06:24] LABS: ALB/GLOB RATIO 0.5 (0.8-2.0); ALBUMIN 2.1 g/dl (3.5-5.0); ALKALINE PHOSPHATASE 75 U/L (33-138); ALT/SGPT 14 U/L (12-78); ANION GAP 9 mmol/L (0-20); AST/SGOT 12 U/L (10-40); BILIRUBIN,TOTAL 0.4 mg/dl (0-1.5); BLOOD UREA NITROGEN 78 mg/dl (6-24); CALCIUM 8.8 mg/dl (8.5-10.5); CARBON DIOXIDE-VENOUS 40 mmol/L (22-32); CHLORIDE 94 mmol/l (96-110); CREATININE 2.23 mg/dl (0.50-1.10); GLUCOSE 265 mg/dL (70-110); POTASSIUM 3.6 mmol/L (3.7-5.1); SODIUM 139 mmol/L (135-145); eGFR VALUE FOR BLACK 30 mL/Min
[2017-01-29 06:29] LABS: EOS % 18.6 % (0-7)
[2017-01-31] MEDS ORDERED: OXYBUTYNIN CHLOR5 M2 PO (10:47)
[2017-01-31] MEDS ORDERED: REGLAN10 M2 PO (10:47)
== END 2017-01-31 11:10 | disposition home health service (06) | DRG 193 ==
LOC: EDMED 17:32 → EMR2 18:18 → PCUA 19:55
PROVIDERS: Emergency Medicine; Family Medicine; Internal Medicine Pulmonary Disease; ADMIT Family Medicine
PROC: 02HV33Z Insertion of Infusion Device into Superior Vena Cava, Percutaneous Approach (ICD-10-PCS; principal; 2017-01-25)
PROC: B548ZZA Ultrasonography of Superior Vena Cava, Guidance (ICD-10-PCS; 2017-01-25)
PROC: 5A09457 Assistance with Respiratory Ventilation, 24-96 Consecutive Hours, Continuous Positive Airway Pressure (ICD-10-PCS; 2017-01-25)
DX: J18.9 Pneumonia, unspecified organism (principal); J96.02 Acute respiratory failure with hypercapnia; E66.2 Morbid (severe) obesity with alveolar hypoventilation; N17.9 Acute kidney failure, unspecified; N18.4 Chronic kidney disease, stage 4 (severe); Z68.45 Body mass index [BMI] 70 or greater, adult; J96.11 Chronic respiratory failure with hypoxia; K21.9 Gastro-esophageal reflux disease without esophagitis; I73.9 Peripheral vascular disease, unspecified; I25.10 Atherosclerotic heart disease of native coronary artery without angina pectoris; F32.9 Major depressive disorder, single episode, unspecified; E11.65 Type 2 diabetes mellitus with hyperglycemia; E03.9 Hypothyroidism, unspecified; E78.5 Hyperlipidemia, unspecified; Z86.718 Personal history of other venous thrombosis and embolism; Z79.01 Long term (current) use of anticoagulants; Z89.512 Acquired absence of left leg below knee; Z89.511 Acquired absence of right leg below knee
CPT/HCPCS: A9540; A9558; C1751; J1644; J1815; J2543; J2930; J3370; J7030; P9612

== ENCOUNTER 2017-03-07 13:54 | Observation (INO) | payer MEDICARE, MEDICAID ==
[~2017-03-07 13:54] MED LIST changes: +OXYBUTYNIN CHLOR5 M2 PO; +REGLAN10 M2 PO
[2017-03-07] MEDS ORDERED: POTASSIUM CHLO10 ME2 PO (14:37)
[2017-03-07 14:39] LABS: ABG CO2 ARTERIAL 30 mmol/L (21-27); ARTERIAL BLD GAS O2 SATURATION 90 % (95-98); ARTERIAL BLOOD GAS PCO2 48 mmHg (32-45); ARTERIAL PO2 61 mmHg (70-100); BICARBONATE 29 mmol/L (21-28); BLOOD GAS BASE EXCESS 4 mM/L (-/+3); PH 7.39 Units (7.35-7.45)
[2017-03-07] MEDS ORDERED: OXYCODONE HCL5 M1 PO (14:40)
[2017-03-07 14:42] LABS: BASO % 0.1 % (0-2); EOS % 12.2 % (0-7); EOSINOPHIL ABSOLUTE COUNT 1.2 tho/cmm (0.0-0.7); HCT-HEMATOCRIT 33.1 % (34.0-49.0); HGB-HEMOGLOBIN 10.3 gm/dl (12.0-15.5); IMMATURE GRANULOCYTES ABSOLUTE 0.04 tho/cmm (0-0.03); IMMATURE GRANULOCYTES PERCENT 0.4 % (0-0.3); LYMPH % 12.2 % (20-45); LYMPH ABSOLUTE COUNT 1.2 tho/cmm (0.8-4.5); MCH (MEAN CORPUSCULAR HGB) 29.1 pg (28.0-32.0); MCHC MEAN CORPUSCULAR HGB CONC 31.1 % (32.0-36.0); MCV (MEAN CELL VOLUME) 93.5 fl (82.0-96.0); MEAN PLATELET VOLUME 10.5 cmc (9.4-12.4); MONO % 3.6 % (0-12); MONOCYTE ABSOLUTE COUNT 0.4 tho/cmm (0.0-1.2); NEUTROPHIL ABSOLUTE COUNT 7.2 tho/cmm (1.6-8.0); NEUTROPHIL-AUTOMATED 7.2 tho/cmm (1.6-8.0); NEUTROPHILS % 71.5 % (40-80); PLATELET COUNT 227 tho/cmm (150-450); RED BLOOD COUNT 3.54 mil/cmm (4.00-5.20); RED CELL DISTRIBUTION WIDTH 16.4 % (12.4-16.4)
[2017-03-07 14:59] LABS: ALB/GLOB RATIO 0.5 (0.8-2.0); ALBUMIN 2.7 g/dl (3.5-5.0); ALKALINE PHOSPHATASE 112 U/L (33-138); ALT/SGPT 17 U/L (12-78); ANION GAP 16 mmol/L (0-20); AST/SGOT 15 U/L (10-40); BILIRUBIN,DIRECT 0.1 mg/dl (0.0-0.3); BILIRUBIN,INDIRECT 0.3 mg/dL (0.0-1.0); BILIRUBIN,TOTAL 0.4 mg/dl (0-1.5); BLOOD UREA NITROGEN 85 mg/dl (6-24); CARBON DIOXIDE-VENOUS 29 mmol/L (22-32); CHLORIDE 98 mmol/l (96-110); CREATININE 2.61 mg/dl (0.50-1.10); GLUCOSE 231 mg/dL (70-110); POTASSIUM 3.7 mmol/L (3.7-5.1); SODIUM 139 mmol/L (135-145); eGFR VALUE FOR BLACK 25 mL/Min
[2017-03-07] MEDS ORDERED: NOVOLOG FL100 UNIT/2 SC (15:02)
[2017-03-07] MEDS ORDERED: OXYCONTIN20 M2 PO (15:03)
[2017-03-07 15:18] LABS: PROCALCITONIN <0.05 ng/ml (0.05-0.09)
[2017-03-07 17:45] LABS: URINE BILIRUBIN NEGATIVE (NEG); URINE BLOOD NEGATIVE (NEG); URINE GLUCOSE (UA) NEGATIVE (NEG); URINE KETONE NEGATIVE (NEG); URINE LEUKOCYTE ESTERASE NEGATIVE (NEG); URINE NITRITE NEGATIVE (NEG); URINE PROTEIN MODERATE (NEG); URINE SPECIFIC GRAVITY 1.005 (1.003-1.030)
[2017-03-07 17:47] LABS: URINE APPEARANCE CLEAR; URINE COLOR PALE YELLOW
[2017-03-07 17:55] LABS: URINE RBC 0 /[HPF] (0-5); URINE WBC RARE /[HPF] (0-5)
[2017-03-08 05:18] LABS: BASO % 0.1 % (0-2); EOS % 14.2 % (0-7); EOSINOPHIL ABSOLUTE COUNT 1.1 tho/cmm (0.0-0.7); HCT-HEMATOCRIT 33.3 % (34.0-49.0); LYMPH % 14.9 % (20-45); LYMPH ABSOLUTE COUNT 1.1 tho/cmm (0.8-4.5); MCH (MEAN CORPUSCULAR HGB) 28.9 pg (28.0-32.0); MCV (MEAN CELL VOLUME) 96.2 fl (82.0-96.0); MEAN PLATELET VOLUME 10.9 cmc (9.4-12.4); MONO % 5.6 % (0-12); MONOCYTE ABSOLUTE COUNT 0.4 tho/cmm (0.0-1.2); NEUTROPHIL ABSOLUTE COUNT 4.9 tho/cmm (1.6-8.0); NEUTROPHIL-AUTOMATED 4.9 tho/cmm (1.6-8.0); NEUTROPHILS % 65.2 % (40-80); PLATELET COUNT 215 tho/cmm (150-450); RED BLOOD COUNT 3.46 mil/cmm (4.00-5.20); RED CELL DISTRIBUTION WIDTH 16.5 % (12.4-16.4); WHITE BLOOD COUNT 7.5 tho/cmm (4.0-10.0)
[2017-03-08 05:37] LABS: ANION GAP 15 mmol/L (0-20); BLOOD UREA NITROGEN 73 mg/dl (6-24); CALCIUM 8.8 mg/dl (8.5-10.5); CARBON DIOXIDE-VENOUS 31 mmol/L (22-32); CHLORIDE 99 mmol/l (96-110); CREATININE 2.31 mg/dl (0.50-1.10); GLUCOSE 265 mg/dL (70-110); POTASSIUM 3.6 mmol/L (3.7-5.1); SODIUM 141 mmol/L (135-145); eGFR VALUE FOR BLACK 29 mL/Min
== END 2017-03-08 11:25 ==
LOC: EDMED 13:54 → EMR2 18:29 → 5WE 20:00
PROVIDERS: Emergency Medicine; Hospitalist; ADMIT Family Medicine
DX: R07.89 Other chest pain (principal); R06.00 Dyspnea, unspecified; R09.02 Hypoxemia; E11.22 Type 2 diabetes mellitus with diabetic chronic kidney disease; I12.9 Hypertensive chronic kidney disease with stage 1 through stage 4 chronic kidney disease, or unspecified chronic kidney disease; N18.4 Chronic kidney disease, stage 4 (severe); D63.1 Anemia in chronic kidney disease; E03.9 Hypothyroidism, unspecified; E78.5 Hyperlipidemia, unspecified; I73.9 Peripheral vascular disease, unspecified; F32.9 Major depressive disorder, single episode, unspecified; I25.10 Atherosclerotic heart disease of native coronary artery without angina pectoris; I48.91 Unspecified atrial fibrillation; G89.29 Other chronic pain; Z88.1 Allergy status to other antibiotic agents; Z88.5 Allergy status to narcotic agent; Z88.8 Allergy status to other drugs, medicaments and biological substances; Z86.718 Personal history of other venous thrombosis and embolism; Z90.49 Acquired absence of other specified parts of digestive tract; Z79.82 Long term (current) use of aspirin; Z79.899 Other long term (current) drug therapy; Z98.890 Other specified postprocedural states
CPT/HCPCS: A9540; A9558; G0378; G8978-GP-CH; G8979-GP-CH; G8980-GP-CH; J1650; J1815; J1940; J7030